=== PATIENT | female | born 1955 | race Caucasian/White ===

== ENCOUNTER 2019-12-29 06:23 | Day surgery (SDC) | payer MEDICARE, BC ==
[2019-12-29] MEDS ORDERED: HYDROmorphone INJ1* 1 MG/ML SYRINGE IV PRN (07:50)
[2019-12-29] MEDS ORDERED: Naloxone* 0.4 MG/ML 1 ML VIAL IV PRN (07:50)
[2019-12-29] MEDS ORDERED: Ondansetron INJ* 2 MG/ML VIAL IV PRN (07:50)
[2019-12-29] MEDS ORDERED: Propofol* 10 MG/ML 20 ML BTL ONE (08:55)
[2019-12-29] MEDS ORDERED: Rocuronium* 10 MG/ML VIAL ONE ×2 (08:55→10:13)
[2019-12-29] MEDS ORDERED: Ondansetron INJ* 2 MG/ML VIAL ONE (10:35)
[2019-12-29] MEDS ORDERED: Sugammadex * 200 MG/2 ML VIAL IV PUSH ONE (10:35)
[2019-12-29 12:13] VITALS: BP 156/78
--- NOTE | 2019-12-29 20:32 | PRO ---
CC: Dr. Essie Griffin * DATE OF PROCEDURE: 12/29/19 [facility] PROCEDURE: Colonoscopy with hot snare polypectomy, cold snare polypectomy, jumbo biopsy polypectomy, clip placement x6, tattoo. REFERRING PROVIDER: Dr. Essie Griffin. INDICATION: The patient is seen for significant iron-deficiency anemia of unclear etiology. The patient has seen a small amount of rectal bleeding once. No other GI symptoms. No prior colon cancer screening. The patient's father of some type of cancer, although she is not sure what type. MEDICATIONS: Given by Anesthesia. DESCRIPTION OF PROCEDURE: Full disclosure of risks was reviewed with the patient as detailed on the consent form. The patient was placed in the left lateral decubitus position and monitored with continuous pulse oximetry, capnography, interval blood pressure monitoring, and direct observation. After anorectal examination was performed, the adult colonoscope was inserted into the rectum and slowly advanced forward to the level of the terminal ileum. Complete views of the cecum were obtained including the medial wall between the IC valve and the appendiceal orifice. Quality of the prep was excellent. Photodocumentation of landmarks obtained. Careful inspection was made as the colonoscope was withdrawn. Retroflexed was performed in the rectum. Findings and interventions are described below. FINDINGS: Anorectal exam was notable for small external anal skin tags. Scope was inserted into the rectum and slowly advanced forward. There was some looping of the colonoscope as the scope was advanced into the right colon. Scope was ultimately able to be advanced into the cecum. Once in the cecum, the terminal ileum was intubated x10 cm. Ileal mucosa was normal in appearance. Scope was then withdrawn back into the cecum and then slowly throughout the length of the colon. There was no colitis. No fresh or old blood. No AVMs. In the cecum, there were 2 polyps measuring 3 mm each. These polyps were removed with jumbo biopsy forceps. In the right colon, there was an inverted diverticulum. In the transverse colon, there was a 4 mm sessile polyp removed with cold snare. In the descending colon, there was a very large polyp measuring approximately 2.5 cm. This polyp was located along a fold and encompassed one-third to one-half of the lumen of the colon in this area. This polyp was removed in piecemeal fashion using a combination of hot snare and cold snare. Two clips were used to close the polypectomy site prophylactically. Tattoo ink was injected just distal to the polyp site for localization in the future if needed. At 40 cm, there was a large pedunculated polyp (approximately 2-2.5 cm) on a very long stalk. Two clips were used at the lower portion of the stalk with their ends nearly apposing in order to help prevent bleeding with polypectomy. Medium- sized snare was then used to gather the polyp. The snare was held snugly closed for a minute to strangulate the polyp. Electrosurgery was then used to transect the polyp. There was no bleeding. No residual polyp tissue. Two clips were used to close the top of the stalk at the polypectomy site. Retroflexion in the rectum revealed small internal hemorrhoids. Scope was then withdrawn from the patient. The patient tolerated the procedure well and was recovered in the GI recovery area. IMPRESSION: 1. Complete colonoscopy to terminal ileum. 2. Three small polyps and two large polyps removed as above. 4. I doubt that the polyps contributed to the iron-deficiency anemia as there did not appear to be any erosions or ulcers on the polyp surfaces. 5. Small hemorrhoids and anal skin tags. FOLLOWUP: 1. Await pathology. 2. Tentatively plan to repeat colonoscopy in 3 to 6 months to reassess the large sessile polyp in the descending colon to ensure no residual polyp tissue ( given piecemeal resection). 3. Will plan for a video capsule endoscopy to ensure no small bowel source of anemia. Thank you very much for this referral. [id number]/[facility] #: [id number] JULIANE
--- NOTE | 2020-01-04 04:44 | PRO ---
CC: Dr. Essie Griffin * DATE OF PROCEDURE: 12/29/19 [facility] PROCEDURE: EGD with biopsy. REFERRING PROVIDER: Dr. Essie Griffin. INDICATIONS: Iron deficiency anemia. MEDICATIONS GIVEN: By Anesthesia. DESCRIPTION OF PROCEDURE: Full disclosure of risks was reviewed with the patient as detailed on the consent form. The patient was placed in the left lateral decubitus position and monitored with continuous pulse oximetry, capnography, interval blood pressure monitoring, and direct observation. A bite -block was placed between the patient's teeth. An adult gastroscope was then inserted into the patient's mouth and advanced down the esophagus, into the stomach, and into the distal duodenum. Findings and interventions are described below. FINDINGS: Esophagus was a tubular structure without rings or strictures. The GE junction was irregular with several tongues of salmon-colored mucosa extending 2 to 3 cm proximal to the GE junction. GE junction occurred at 43 cm. Proximal most extent of Z-line was at 40 cm. Biopsies were obtained from the GE junction. Scope was then advanced into the stomach. Stomach was examined in the forward and retroflexed views. There were no ulcers or erosions. There was diffuse gastric erythema. Biopsies were obtained from the antrum and body for histologic evaluation. Biopsies also obtained from the antrum for CLOtest. There were no AVMs seen in the stomach. No fresh or old blood. Scope was then advanced into the duodenum to at least the third portion. In the mid-duodenum, there was a 1.2 to 1.5 cm polypoid lesion. This was biopsied. Scope was able to be advanced deep into the distal duodenum if not proximal jejunum. No AVMs. No erosions or ulcers. Biopsies were obtained for histologic evaluation. Scope was then withdrawn from the patient. The patient tolerated the procedure well and was recovered in the GI recovery area. IMPRESSION: 1. Complete upper endoscopy to distal duodenum. 2. Irregular gastroesophageal junction. 3. Large duodenal polypoid lesion. Appearance concerning for an adenoma. Biopsied. 4. No explanation for iron deficiency anemia seen on this exam. FOLLOWUP: 1. Await pathology. 2. Proceed with colonoscopy as planned. 3. If duodenal lesion is confirmed to be an adenoma, then I would likely refer her to [place] or [place] for resection. Thank you very much for this referral. [id number]/[facility] #: [id number] [facility]
== END 2019-12-29 12:39 | disposition home or self-care (01) ==
LOC: OR 06:23
PROVIDERS: ATTEND Internal Medicine Gastroenterology
DX: D50.9 Iron deficiency anemia, unspecified (principal); K62.5 Hemorrhage of anus and rectum; C18.6 Malignant neoplasm of descending colon; D12.0 Benign neoplasm of cecum; D12.4 Benign neoplasm of descending colon; D12.3 Benign neoplasm of transverse colon; K29.50 Unspecified chronic gastritis without bleeding; G47.33 Obstructive sleep apnea (adult) (pediatric); I10 Essential (primary) hypertension; I34.8 Other nonrheumatic mitral valve disorders; Z95.0 Presence of cardiac pacemaker
CPT/HCPCS: 87077; 88305; 88341; 88342; J2405; J2704

== ENCOUNTER 2020-10-08 14:27 | Inpatient (IN) ==
[2020-10-08 16:56] LABS: ABS Lymphocytes 0.4 10^3/ul (1.0-4.8); ABS Neutrophils 2.9 10^3/ul (1.5-7.7); Eosinophil % 0.5 %; Hematocrit 12 % (35-47); Hemoglobin 4.1 g/dL (12.0-16.0); Lymphocyte % 12.3 %; Mean Corpuscular HGB Conc 34 g/dL (31-36); Mean Corpuscular Hemoglobin 29 pg (27-31); Mean Corpuscular Volume 84 fL (80-97); Mean Platelet Volume 8.2 fL (7.4-10.4); Platelet Count 159 10^3/uL (150-450); Red Blood Count 1.43 10^6 /uL (3.70-4.87); Red Cell Distribution Width 23 % (10-15); White Blood Count 3.4 10^3/uL (3.5-10.8)
[2020-10-08 17:03] LABS: Albumin 3.1 g/dL (3.2-5.2); Albumin/Globulin Ratio 1.4 (1-3); BUN/Creatinine Ratio 11.6 (8-20); C Reactive Protein 5.86 mg/L (<8.01); EGFR African American 38.2 (>60); EGFR Non-African American 31.5 (>60); Globulin 2.2 g/dL (2-4); Magnesium 1.7 mg/dL (1.9-2.7); Potassium 3.6 mmol/L (3.5-5.0); Total Bilirubin 0.4 mg/dL (0.2-1.0); Total Protein 5.3 g/dL (6.4-8.9)
[2020-10-08] MEDS ORDERED: Albuterol HFA INHALER 8 gm MDI INH PRN (17:55)
[2020-10-08] MEDS ORDERED: Magnesium Sulfate 2 gm BAG 2 GM/50 ML BAG IVPB ONE (18:01)
[2020-10-08] MEDS ORDERED: Iodixanol (CONTRAST) 320 MG/ML 100 ML SDV IV ONE (18:56)
[2020-10-08] MEDS: Ondansetron 4 mg VIAL 2 MG/ML 2 ml VIAL IV PRN (22:02)
[2020-10-09] MEDS: NS 0.9% 1000 ml BAG 1,000 ML IV SCH ×2 (01:28→16:21)
[2020-10-09 06:11] LABS: ABS Lymphocytes 0.6 10^3/ul (1.0-4.8); ABS Neutrophils 1.3 10^3/ul (1.5-7.7); Eosinophil % 1.3 %; Hematocrit 15 % (35-47); Hemoglobin 4.9 g/dL (12.0-16.0); Lymphocyte % 28.5 %; Mean Corpuscular HGB Conc 33 g/dL (31-36); Mean Corpuscular Hemoglobin 28 pg (27-31); Mean Corpuscular Volume 84 fL (80-97); Mean Platelet Volume 8.7 fL (7.4-10.4); Platelet Count 109 10^3/uL (150-450); Red Blood Count 1.77 10^6 /uL (3.70-4.87); Red Cell Distribution Width 19 % (10-15); White Blood Count 1.9 10^3/uL (3.5-10.8)
[2020-10-09 06:18] LABS: BUN/Creatinine Ratio 10.2 (8-20); Calcium 7.6 mg/dL (8.6-10.3); EGFR African American 43.3 (>60); EGFR Non-African American 35.8 (>60); Potassium 3.3 mmol/L (3.5-5.0)
[2020-10-09 07:11] LABS: INR 1.03 (0.82-1.09)
[2020-10-09] MEDS: Iron Sucrose 200 MG in NS 0.9% 100 ml BAG 100 ML IVPB SCH (09:17)
[2020-10-09 17:14] LABS: Hematocrit 20 % (35-47); Hemoglobin 6.6 g/dL (12.0-16.0); Mean Corpuscular HGB Conc 34 g/dL (31-36); Mean Corpuscular Hemoglobin 28 pg (27-31); Mean Corpuscular Volume 84 fL (80-97); Mean Platelet Volume 7.8 fL (7.4-10.4); Platelet Count 95 10^3/uL (150-450); Red Blood Count 2.32 10^6 /uL (3.70-4.87); Red Cell Distribution Width 18 % (10-15); White Blood Count 2.3 10^3/uL (3.5-10.8)
[2020-10-10] MEDS: NS 0.9% 1000 ml BAG 1,000 ML IV SCH ×2 (02:39→15:54)
[2020-10-10 06:17] LABS: ABS Lymphocytes 0.5 10^3/ul (1.0-4.8); ABS Neutrophils 1.2 10^3/ul (1.5-7.7); Hematocrit 18 % (35-47); Lymphocyte % 29.5 %; Mean Corpuscular HGB Conc 34 g/dL (31-36); Mean Corpuscular Hemoglobin 29 pg (27-31); Mean Corpuscular Volume 84 fL (80-97); Mean Platelet Volume 8.2 fL (7.4-10.4); Platelet Count 78 10^3/uL (150-450); Red Blood Count 2.08 10^6 /uL (3.70-4.87); Red Cell Distribution Width 18 % (10-15); White Blood Count 1.8 10^3/uL (3.5-10.8)
[2020-10-10 06:28] LABS: Albumin 2.9 g/dL (3.2-5.2); Albumin/Globulin Ratio 1.5 (1-3); Calcium 7.9 mg/dL (8.6-10.3); EGFR African American 61.8 (>60); EGFR Non-African American 51.1 (>60); Magnesium 1.9 mg/dL (1.9-2.7); Potassium 3.8 mmol/L (3.5-5.0); Total Bilirubin 0.8 mg/dL (0.2-1.0); Total Protein 4.9 g/dL (6.4-8.9)
[2020-10-10] MEDS: Iron Sucrose 200 MG in NS 0.9% 100 ml BAG 100 ML IVPB SCH (08:33)
[2020-10-10] MEDS: Ondansetron 4 mg VIAL 2 MG/ML 2 ml VIAL IV PRN (10:04)
[2020-10-10 12:57] LABS: ABS Lymphocytes 0.5 10^3/ul (1.0-4.8); ABS Neutrophils 1.2 10^3/ul (1.5-7.7); Hematocrit 20 % (35-47); Hemoglobin 6.8 g/dL (12.0-16.0); Lymphocyte % 29.5 %; Mean Corpuscular HGB Conc 34 g/dL (31-36); Mean Corpuscular Hemoglobin 28 pg (27-31); Mean Corpuscular Volume 84 fL (80-97); Mean Platelet Volume 8.1 fL (7.4-10.4); Nucleated Red Blood Cells % 0.1; Platelet Count 76 10^3/uL (150-450); Red Blood Count 2.43 10^6 /uL (3.70-4.87); Red Cell Distribution Width 17 % (10-15); White Blood Count 1.8 10^3/uL (3.5-10.8)
[2020-10-10 20:43] LABS: ABS Lymphocytes 0.5 10^3/ul (1.0-4.8); ABS Monocytes 0.1 10^3/ul (0-0.8); Eosinophil % 1.3 %; Hematocrit 22 % (35-47); Hemoglobin 7.3 g/dL (12.0-16.0); Lymphocyte % 32.1 %; Mean Corpuscular HGB Conc 34 g/dL (31-36); Mean Corpuscular Hemoglobin 29 pg (27-31); Mean Corpuscular Volume 86 fL (80-97); Mean Platelet Volume 8.5 fL (7.4-10.4); Nucleated Red Blood Cells % 0.1; Platelet Count 71 10^3/uL (150-450); Red Blood Count 2.53 10^6 /uL (3.70-4.87); Red Cell Distribution Width 17 % (10-15); White Blood Count 1.6 10^3/uL (3.5-10.8)
[2020-10-11] MEDS: NS 0.9% 1000 ml BAG 1,000 ML IV SCH (02:03)
[2020-10-11] MEDS: Ondansetron 4 mg VIAL 2 MG/ML 2 ml VIAL IV PRN (07:37)
[2020-10-11 09:08] LABS: ABS Lymphocytes 0.4 10^3/ul (1.0-4.8); ABS Monocytes 0.1 10^3/ul (0-0.8); ABS Neutrophils 0.8 10^3/ul (1.5-7.7); Hematocrit 24 % (35-47); Hemoglobin 7.9 g/dL (12.0-16.0); Lymphocyte % 31.6 %; Mean Corpuscular HGB Conc 33 g/dL (31-36); Mean Corpuscular Hemoglobin 29 pg (27-31); Mean Corpuscular Volume 86 fL (80-97); Mean Platelet Volume 8.9 fL (7.4-10.4); Nucleated Red Blood Cells % 0.2; Platelet Count 72 10^3/uL (150-450); Red Blood Count 2.76 10^6 /uL (3.70-4.87); Red Cell Distribution Width 18 % (10-15); White Blood Count 1.4 10^3/uL (3.5-10.8)
[2020-10-11] MEDS: Iron Sucrose 200 MG in NS 0.9% 100 ml BAG 100 ML IVPB SCH (09:41)
[2020-10-11 11:01] VITALS: BP 99/47
== END 2020-10-11 13:30 | disposition home or self-care (01) | DRG 755 ==
LOC: ED 14:27 → MEDTELE 19:08
PROVIDERS: ADMIT Internal Medicine; ATTEND Internal Medicine Hematology & Oncology

== ENCOUNTER 2020-10-11 15:37 | Inpatient (IN) ==
[2020-10-11 18:18] LABS: Hematocrit 22 % (35-47); Hemoglobin 7.4 g/dL (12.0-16.0); Mean Corpuscular HGB Conc 34 g/dL (31-36); Mean Corpuscular Hemoglobin 29 pg (27-31); Mean Corpuscular Volume 85 fL (80-97); Mean Platelet Volume 8.9 fL (7.4-10.4); Platelet Count 67 10^3/uL (150-450); Red Blood Count 2.54 10^6 /uL (3.70-4.87); Red Cell Distribution Width 17 % (10-15); White Blood Count 1.4 10^3/uL (3.5-10.8)
[2020-10-11 18:20] LABS: ABS Neutrophils 0.7 10^3/ul (1.5-7.7)
[2020-10-11 18:21] LABS: Albumin 2.9 g/dL (3.2-5.2); Albumin/Globulin Ratio 1.4 (1-3); Calcium 7.9 mg/dL (8.6-10.3); EGFR African American 67.5 (>60); EGFR Non-African American 55.8 (>60); Globulin 2.1 g/dL (2-4); INR 1.01 (0.82-1.09); Potassium 3.5 mmol/L (3.5-5.0); Total Bilirubin 0.6 mg/dL (0.2-1.0)
[2020-10-11 19:23] LABS: ABS Lymphocytes 0.6 10^3/ul (1.0-4.8); ABS Monocytes 0.1 10^3/ul (0-0.8); Eosinophil % 1.3 %; Lymphocyte % 39.8 %; Nucleated Red Blood Cells % 0.2
[2020-10-12] MEDS ORDERED: Albuterol HFA INHALER 8 gm MDI INH PRN (00:36)
[2020-10-12] MEDS: Ondansetron 4 mg VIAL 2 MG/ML 2 ml VIAL IV PRN ×2 (02:07→17:04)
[2020-10-12 07:56] LABS: ABS Lymphocytes 0.4 10^3/ul (1.0-4.8); ABS Monocytes 0.1 10^3/ul (0-0.8); ABS Neutrophils 0.3 10^3/ul (1.5-7.7); Eosinophil % 2.6 %; Hematocrit 25 % (35-47); Hemoglobin 8.2 g/dL (12.0-16.0); Mean Corpuscular HGB Conc 33 g/dL (31-36); Mean Corpuscular Hemoglobin 29 pg (27-31); Mean Corpuscular Volume 87 fL (80-97); Mean Platelet Volume 7.9 fL (7.4-10.4); Platelet Count 58 10^3/uL (150-450); Red Blood Count 2.82 10^6 /uL (3.70-4.87); Red Cell Distribution Width 16 % (10-15); White Blood Count 0.9 10^3/uL (3.5-10.8)
[2020-10-12 07:59] LABS: INR 1.03 (0.82-1.09)
[2020-10-12 08:08] LABS: BUN/Creatinine Ratio 6.7 (8-20); Calcium 7.8 mg/dL (8.6-10.3); EGFR African American 76.3 (>60); Potassium 3.7 mmol/L (3.5-5.0)
[2020-10-12] MEDS: Potassium Chlor 10 meq TAB PO SCH (09:20)
[2020-10-13] MEDS ORDERED: Ondansetron 4 mg VIAL 2 MG/ML 2 ml VIAL IV PRN (07:47)
[2020-10-13] MEDS: Potassium Chlor 10 meq TAB PO SCH (07:49)
[2020-10-13] MEDS ORDERED: NS 0.9% 250 ml 250 ML IV ONE (07:50)
[2020-10-13] MEDS ORDERED: Iohexol 350 (CONTRAST) 200 ML MDV IV ONE ×2 (08:20→09:47)
[2020-10-13] MEDS ORDERED: Lidocaine 1% VIAL 10 MG/ML VIAL ONE (08:20)
[2020-10-13] MEDS ORDERED: Heparin 2 UNITS/ML 1000 mls 2,000 ML IV ONE (08:20)
[2020-10-13] MEDS ORDERED: Naloxone 0.4 mg VIAL 0.4 mg/ml 1 ml VIAL ONE (08:47)
[2020-10-13] MEDS ORDERED: Ondansetron 4 mg VIAL 2 MG/ML 2 ml VIAL ONE (08:47)
[2020-10-13] MEDS ORDERED: Flumazenil 0.5 mg/5 ml 0.1 MG/ML 5 ml VIAL ONE (08:47)
[2020-10-13] MEDS ORDERED: Midazolam 5 mg/5 ml VIAL 1 mg/ml 5 ml VIAL (5 mg) ONE (08:47)
[2020-10-13] MEDS ORDERED: fentaNYL 100 mcg/2 ml 50 MCG/ML VIAL ONE (08:47)
[2020-10-13] MEDS ORDERED: nitroGLYCERIN DRIP 25,000 MCG/250 ML BTL ONE (08:47)
[2020-10-13] MEDS ORDERED: Heparin 1,000 UNIT/ML 10 ml (10,000 UNITS) CATHLAB/DIALYSIS ONE (08:50)
[2020-10-13] MEDS ORDERED: VERAPAMIL 2.5 MG/ML 2 ML VIAL ** 5 mg/2 ml ONE ×2 (08:50→12:12)
[2020-10-13] MEDS ORDERED: Clindamycin 900 MG/D5W BAG IVPB ONE (09:00)
[2020-10-13] MEDS ORDERED: Heparin 2 UNITS/ML 1000 mls 1,000 ML IV ONE (10:20)
[2020-10-13] MEDS ORDERED: HYDROmorphone PCA 20 MG/20 ML PCA.SYRING PCA SCH (11:00)
[2020-10-13] MEDS ORDERED: HYDROmorphone 1 MG/1 ML SYRINGE ONE (12:28)
[2020-10-13] MEDS: NS 0.9% 1000 ml BAG 1,000 ML IVPB SCH (12:56)
[2020-10-13] MEDS: Ondansetron 4 mg VIAL 2 MG/ML 2 ml VIAL IV SCH ×2 (13:00→21:43)
[2020-10-13 13:52] LABS: Albumin 2.5 g/dL (3.2-5.2); Albumin/Globulin Ratio 1.4 (1-3); BUN/Creatinine Ratio 6.6 (8-20); Calcium 7.5 mg/dL (8.6-10.3); EGFR African American 75.3 (>60); EGFR Non-African American 62.2 (>60); Globulin 1.8 g/dL (2-4); Potassium 3.7 mmol/L (3.5-5.0); Total Bilirubin 0.5 mg/dL (0.2-1.0); Total Protein 4.3 g/dL (6.4-8.9)
[2020-10-13 14:10] LABS: ABS Lymphocytes 0.4 10^3/ul (1.0-4.8); ABS Monocytes 0.2 10^3/ul (0-0.8); ABS Neutrophils 0.1 10^3/ul (1.5-7.7); Eosinophil % 3.4 %; Hematocrit 21 % (35-47); Hemoglobin 6.8 g/dL (12.0-16.0); Lymphocyte % 55.1 %; Mean Corpuscular HGB Conc 33 g/dL (31-36); Mean Corpuscular Hemoglobin 30 pg (27-31); Mean Corpuscular Volume 89 fL (80-97); Mean Platelet Volume 8.1 fL (7.4-10.4); Platelet Count 42 10^3/uL (150-450); Red Blood Count 2.31 10^6 /uL (3.70-4.87); Red Cell Distribution Width 17 % (10-15); White Blood Count 0.6 10^3/uL (3.5-10.8)
[2020-10-14 00:38] LABS: Hematocrit 26 % (35-47); Hemoglobin 8.5 g/dL (12.0-16.0); Mean Corpuscular HGB Conc 33 g/dL (31-36); Mean Corpuscular Hemoglobin 30 pg (27-31); Mean Corpuscular Volume 90 fL (80-97); Mean Platelet Volume 9.3 fL (7.4-10.4); Platelet Count 39 10^3/uL (150-450); Red Blood Count 2.84 10^6 /uL (3.70-4.87); Red Cell Distribution Width 17 % (10-15); White Blood Count 1.2 10^3/uL (3.5-10.8)
[2020-10-14 00:55] LABS: Polychromasia 2+
[2020-10-14 00:56] LABS: ABS Lymphocytes 0.5 10^3/ul (1.0-4.8); ABS Monocytes 0.6 10^3/ul (0-0.8); ABS Neutrophils 0.1 10^3/ul (1.5-7.7); Eosinophil % 2.9 %; Lymphocyte % 41.5 %; Nucleated Red Blood Cells % 0.5
[2020-10-14] MEDS: Ondansetron 4 mg VIAL 2 MG/ML 2 ml VIAL IV SCH ×4 (02:32→19:07)
[2020-10-14] MEDS: Cefepime 2 GM in Dextrose 2 GM/50 ML BAG IV SCH ×3 (02:37→17:30)
[2020-10-14] MEDS: NS 0.9% 1000 ml BAG 1,000 ML IVPB SCH (06:45)
[2020-10-14] MEDS ORDERED: oxyCODONE/Acetamin 5/325 mg TAB PO PRN (10:15)
[2020-10-14] MEDS: Potassium Chlor 10 meq TAB PO SCH (10:18)
[2020-10-14 15:51] LABS: Hematocrit 28 % (35-47); Hemoglobin 9.3 g/dL (12.0-16.0); Mean Corpuscular HGB Conc 33 g/dL (31-36); Mean Corpuscular Hemoglobin 30 pg (27-31); Mean Corpuscular Volume 91 fL (80-97); Red Blood Count 3.07 10^6 /uL (3.70-4.87); Red Cell Distribution Width 17 % (10-15)
[2020-10-14 16:31] LABS: Polychromasia 2+
[2020-10-14 16:35] LABS: ABS Lymphocytes 0.3 10^3/ul (1.0-4.8); ABS Monocytes 0.5 10^3/ul (0-0.8); ABS Neutrophils 0.2 10^3/ul (1.5-7.7); Eosinophil % 1.1 %; Lymphocyte % 28.1 %; Mean Platelet Volume 9.5 fL (7.4-10.4); Nucleated Red Blood Cells % 0.8; Platelet Count 35 10^3/uL (150-450)
[2020-10-14 19:47] LABS: Urine Appearance Cloudy; Urine Bilirubin Negative (Negative); Urine Blood 3+ (Negative); Urine Color Yellow; Urine Glucose Negative (Negative); Urine Ketones Negative (Negative); Urine Nitrite Negative (Negative); Urine Protein 2+(100 mg/dL) (Negative); Urine Specific Gravity 1.024 (1.010-1.030); Urine Urobilinogen Negative (Negative)
[2020-10-14 19:55] LABS: Urine Bacteria Absent (Absent); Urine Red Blood Cell Absent (Absent); Urine Squamous Epithelial Cell Present (Absent); Urine White Blood Cell Trace(0-5/hpf) (Absent)
[2020-10-15] MEDS: Ondansetron 4 mg VIAL 2 MG/ML 2 ml VIAL IV SCH ×4 (00:22→19:23)
[2020-10-15] MEDS: Cefepime 2 GM in Dextrose 2 GM/50 ML BAG IV SCH ×3 (00:22→16:47)
[2020-10-15] MEDS: Potassium Chlor 10 meq TAB PO SCH (09:05)
[2020-10-15 09:27] LABS: ABS Lymphocytes 0.4 10^3/ul (1.0-4.8); ABS Monocytes 0.6 10^3/ul (0-0.8); ABS Neutrophils 1.9 10^3/ul (1.5-7.7); Eosinophil % 1.2 %; Hematocrit 28 % (35-47); Hemoglobin 9.4 g/dL (12.0-16.0); Lymphocyte % 13.9 %; Mean Corpuscular HGB Conc 33 g/dL (31-36); Mean Corpuscular Hemoglobin 30 pg (27-31); Mean Corpuscular Volume 90 fL (80-97); Mean Platelet Volume 8.8 fL (7.4-10.4); Nucleated Red Blood Cells % 0.1; Platelet Count 34 10^3/uL (150-450); Red Blood Count 3.14 10^6 /uL (3.70-4.87); Red Cell Distribution Width 17 % (10-15); White Blood Count 2.9 10^3/uL (3.5-10.8)
[2020-10-16] MEDS: Cefepime 2 GM in Dextrose 2 GM/50 ML BAG IV SCH ×3 (00:07→16:25)
[2020-10-16] MEDS: Ondansetron 4 mg VIAL 2 MG/ML 2 ml VIAL IV SCH ×4 (00:07→18:57)
[2020-10-16 04:56] LABS: Albumin 2.3 g/dL (3.2-5.2); Albumin/Globulin Ratio 1.2 (1-3); BUN/Creatinine Ratio 11.8 (8-20); Calcium 7.6 mg/dL (8.6-10.3); EGFR African American 81.5 (>60); EGFR Non-African American 67.3 (>60); Potassium 3.4 mmol/L (3.5-5.0); Total Bilirubin 0.5 mg/dL (0.2-1.0); Total Protein 4.3 g/dL (6.4-8.9)
[2020-10-16 05:00] LABS: Hematocrit 24 % (35-47); Hemoglobin 8.2 g/dL (12.0-16.0); Mean Corpuscular HGB Conc 34 g/dL (31-36); Mean Corpuscular Hemoglobin 31 pg (27-31); Mean Corpuscular Volume 90 fL (80-97); Mean Platelet Volume 9.2 fL (7.4-10.4); Platelet Count 21 10^3/uL (150-450); Red Blood Count 2.68 10^6 /uL (3.70-4.87); Red Cell Distribution Width 17 % (10-15); White Blood Count 3.9 10^3/uL (3.5-10.8)
[2020-10-16 06:24] LABS: ABS Eosinophils 0.1 10^3/ul (0-0.6); ABS Lymphocytes 0.4 10^3/ul (1.0-4.8); ABS Monocytes 0.5 10^3/ul (0-0.8); ABS Neutrophils 2.9 10^3/ul (1.5-7.7); Eosinophil % 1.6 %; Lymphocyte % 10.1 %; Nucleated Red Blood Cells % 0.2; Polychromasia 1+
[2020-10-16] MEDS: Potassium Chlor 10 meq TAB PO SCH (08:44)
[2020-10-16] MEDS: Potassium Chlor 20 meq TAB.ER PO SCH (09:15)
[2020-10-17] MEDS: Ondansetron 4 mg VIAL 2 MG/ML 2 ml VIAL IV SCH ×3 (01:34→12:57)
[2020-10-17] MEDS: Potassium Chlor 20 meq TAB.ER PO SCH (08:06)
[2020-10-17 08:14] VITALS: BP 109/51
[2020-10-17 08:38] LABS: Hematocrit 25 % (35-47); Hemoglobin 8.6 g/dL (12.0-16.0); Mean Corpuscular HGB Conc 34 g/dL (31-36); Mean Corpuscular Hemoglobin 31 pg (27-31); Mean Corpuscular Volume 90 fL (80-97); Mean Platelet Volume 9.9 fL (7.4-10.4); Platelet Count 24 10^3/uL (150-450); Red Blood Count 2.82 10^6 /uL (3.70-4.87); Red Cell Distribution Width 17 % (10-15); White Blood Count 5.1 10^3/uL (3.5-10.8)
[2020-10-17 08:39] LABS: BUN/Creatinine Ratio 11.5 (8-20); Calcium 7.6 mg/dL (8.6-10.3); EGFR African American 70.8 (>60); EGFR Non-African American 58.5 (>60); Potassium 3.4 mmol/L (3.5-5.0)
[2020-10-17] MEDS ORDERED: Potassium Chlor 20 meq TAB.ER PO ONE (09:14)
[2020-10-17 10:54] LABS: ABS Lymphocytes 0.4 10^3/ul (1.0-4.8); ABS Monocytes 0.5 10^3/ul (0-0.8); ABS Neutrophils 4.3 10^3/ul (1.5-7.7); Eosinophil % 0.4 %; Lymphocyte % 7.3 %; Microcytosis 1+; Nucleated Red Blood Cells % 0.1; Polychromasia 1+
[2020-10-18] MEDS ORDERED: Potassium Chlor 20 meq TAB.ER PO SCH (09:00)
== END 2020-10-17 15:34 | disposition home or self-care (01) | DRG 749 ==
LOC: ED 15:37 → MEDTELE 23:48
PROVIDERS: ADMIT Internal Medicine; ATTEND Student in an Organized Health Care Education/Training Program
PROC: ANG.UFE (2020-10-13 08:25)

== ENCOUNTER 2020-11-23 00:38 | Inpatient (IN) ==
[2020-11-23] MEDS ORDERED: NS 0.9% 1000 ml BAG 1,000 ML IV ONE ×3 (01:18→05:02)
[2020-11-23] MEDS ORDERED: Metoclopramide 5 MG/ML VIAL (10 mg) IV SLOW PU ONE (01:19)
[2020-11-23 02:16] LABS: Hematocrit 19 % (35-47); Hemoglobin 6.1 g/dL (12.0-16.0); Mean Corpuscular HGB Conc 33 g/dL (31-36); Mean Corpuscular Hemoglobin 31 pg (27-31); Mean Corpuscular Volume 94 fL (80-97); Mean Platelet Volume 8.5 fL (7.4-10.4); Platelet Count 42 10^3/uL (150-450); Red Blood Count 1.98 10^6 /uL (3.70-4.87); Red Cell Distribution Width 21 % (10-15); White Blood Count 0.4 10^3/uL (3.5-10.8)
[2020-11-23 02:23] LABS: ALT 16 U/L (7-52); AST 14 U/L (13-39); Albumin 2.4 g/dL (3.2-5.2); Albumin/Globulin Ratio 0.9 (1-3); Alkaline Phosphatase 63 U/L (34-104); Anion Gap 13 mmol/L (2-11); BUN/Creatinine Ratio 14.3 (8-20); Blood Urea Nitrogen 19 mg/dL (6-24); CO2 Carbon Dioxide 17 mmol/L (22-32); Calcium 7.6 mg/dL (8.6-10.3); Chloride 108 mmol/L (101-111); EGFR African American 48.6 (>60); EGFR Non-African American 40.2 (>60); Globulin 2.7 g/dL (2-4); Glucose 130 mg/dL (70-100); Potassium 2.9 mmol/L (3.5-5.0); Sodium 138 mmol/L (135-145); Total Protein 5.1 g/dL (6.4-8.9)
[2020-11-23] MEDS ORDERED: Magnesium Sulfate 2 gm BAG 2 GM/50 ML BAG IVPB ONE ×2 (02:26→03:46)
[2020-11-23 02:27] LABS: Troponin I 0.04 ng/mL (<0.03)
[2020-11-23] MEDS ORDERED: Potassium Chlor 20 meq TAB.ER PO ONE (02:29)
[2020-11-23] MEDS ORDERED: KCL 20 MEQ/100 ML IVPREMIX 20 MEQ/100 ML BAG IV ONE ×2 (02:34→11:10)
[2020-11-23] MEDS ORDERED: Potassium Chloride LIQUID 20 MEQ/15 ML LIQUID PO ONE (03:31)
[2020-11-23 03:37] LABS: ABS Lymphocytes 0.1 10^3/ul (1.0-4.8); ABS Monocytes 0.1 10^3/ul (0-0.8); ABS Neutrophils 0.1 10^3/ul (1.5-7.7); Eosinophil % 0.5 %; Lymphocyte % 34.2 %; Nucleated Red Blood Cells % 0.2
[2020-11-23] MEDS ORDERED: Ondansetron 4 mg VIAL 2 MG/ML 2 ml VIAL IV PRN (03:43)
[2020-11-23] MEDS ORDERED: Albuterol HFA INHALER 8 gm MDI INH PRN (04:14)
[2020-11-23] MEDS: Cefepime 2 GM in Dextrose 2 GM/50 ML BAG IV SCH ×3 (04:33→20:29)
[2020-11-23 05:23] LABS: Anion Gap 8 mmol/L (2-11); Blood Urea Nitrogen 17 mg/dL (6-24); CO2 Carbon Dioxide 19 mmol/L (22-32); Calcium 7.2 mg/dL (8.6-10.3); Chloride 111 mmol/L (101-111); EGFR African American 58.7 (>60); EGFR Non-African American 48.5 (>60); Glucose 123 mg/dL (70-100); Potassium 3.2 mmol/L (3.5-5.0); Sodium 138 mmol/L (135-145)
[2020-11-23 05:32] LABS: Troponin I 0.04 ng/mL (<0.03)
[2020-11-23 06:21] LABS: Hematocrit 19 % (35-47); Hemoglobin 6.1 g/dL (12.0-16.0); Mean Corpuscular HGB Conc 33 g/dL (31-36); Mean Corpuscular Hemoglobin 31 pg (27-31); Mean Corpuscular Volume 94 fL (80-97); Mean Platelet Volume 9.2 fL (7.4-10.4); Platelet Count 47 10^3/uL (150-450); Red Cell Distribution Width 21 % (10-15); White Blood Count 0.4 10^3/uL (3.5-10.8)
[2020-11-23 06:41] LABS: Troponin I 0.03 ng/mL (<0.03)
[2020-11-23] MEDS: NS 0.9% 1000 ml BAG 1,000 ML IV SCH (07:36)
[2020-11-23 09:39] LABS: ABS Lymphocytes 0.2 10^3/ul (1.0-4.8); ABS Monocytes 0.1 10^3/ul (0-0.8); ABS Neutrophils 0.1 10^3/ul (1.5-7.7); Eosinophil % 0.2 %; Lymphocyte % 44.9 %
[2020-11-23 09:43] LABS: Hematocrit 19 % (35-47); Hemoglobin 6.4 g/dL (12.0-16.0); Mean Corpuscular HGB Conc 33 g/dL (31-36); Mean Corpuscular Hemoglobin 31 pg (27-31); Mean Corpuscular Volume 93 fL (80-97); Mean Platelet Volume 8.5 fL (7.4-10.4); Platelet Count 47 10^3/uL (150-450); Red Blood Count 2.08 10^6 /uL (3.70-4.87); Red Cell Distribution Width 22 % (10-15); White Blood Count 0.4 10^3/uL (3.5-10.8)
[2020-11-23] MEDS ORDERED: Magic MouthWash2-BEN/MAAL/LIDO/NYST 240 ML BTL (alt formulation) SWISH SWAL SCH (13:00)
[2020-11-23] MEDS ORDERED: Lorazepam PYXIS KEY PRN (13:45)
[2020-11-23] MEDS ORDERED: LORazepam 2 mg VIAL 1 ml IV PUSH ONE (13:45)
[2020-11-23] MEDS ORDERED: LORazepam 2 mg VIAL 1 ml IV PUSH PRN (13:45)
[2020-11-23] MEDS: Magic MouthWash1-BEN/MAAL/LIDO 180 ML BTL SWISH SWAL SCH ×3 (14:42→20:28)
[2020-11-23 17:15] LABS: Hematocrit 22 % (35-47); Hemoglobin 7.3 g/dL (12.0-16.0)
[2020-11-23 17:55] LABS: % Iron Saturation 44 % (15-55); Iron 52 ug/dL (50-212); Total Iron Binding Capacity 118 mcg/dL (250-450); Transferrin 84 mg/dL (203-362); Unsaturated Iron Binding < 103 ug/dL
[2020-11-23 18:21] LABS: Vitamin B12 > 1450 pg/mL (180-914)
[2020-11-23 22:16] LABS: Hematocrit 23 % (35-47); Hemoglobin 7.5 g/dL (12.0-16.0)
[2020-11-24] MEDS: NS 0.9% 1000 ml BAG 1,000 ML IV SCH ×2 (05:06→19:24)
[2020-11-24] MEDS: Cefepime 2 GM in Dextrose 2 GM/50 ML BAG IV SCH ×3 (05:06→21:09)
[2020-11-24 05:50] LABS: Hematocrit 20 % (35-47); Hemoglobin 6.7 g/dL (12.0-16.0); Mean Corpuscular HGB Conc 33 g/dL (31-36); Mean Corpuscular Hemoglobin 31 pg (27-31); Mean Corpuscular Volume 93 fL (80-97); Mean Platelet Volume 8.8 fL (7.4-10.4); Platelet Count 30 10^3/uL (150-450); Red Blood Count 2.17 10^6 /uL (3.70-4.87); Red Cell Distribution Width 20 % (10-15); White Blood Count 0.5 10^3/uL (3.5-10.8)
[2020-11-24 05:57] LABS: BUN/Creatinine Ratio 20.8 (8-20); Calcium 7.7 mg/dL (8.6-10.3); EGFR African American 63.1 (>60); EGFR Non-African American 52.2 (>60); Potassium 3.4 mmol/L (3.5-5.0)
[2020-11-24 07:35] LABS: ABS Lymphocytes 0.2 10^3/ul (1.0-4.8); ABS Monocytes 0.1 10^3/ul (0-0.8); Lymphocyte % 46.1 %; Nucleated Red Blood Cells % 0.1
[2020-11-24 08:22] LABS: ABS Neutrophils 0.2 10^3/ul (1.5-7.7)
[2020-11-24] MEDS: Magic MouthWash1-BEN/MAAL/LIDO 180 ML BTL SWISH SWAL SCH ×4 (09:03→21:11)
[2020-11-24 10:30] LABS: Hematocrit 22 % (35-47); Hemoglobin 7.3 g/dL (12.0-16.0)
[2020-11-24 18:46] LABS: Hematocrit 22 % (35-47); Hemoglobin 7.4 g/dL (12.0-16.0)
[2020-11-25] MEDS: Vancomycin SOL ORALSYR 50 MG/ML ML PO SCH ×5 (00:15→21:56)
[2020-11-25 00:31] LABS: Hematocrit 21 % (35-47); Hemoglobin 6.9 g/dL (12.0-16.0)
[2020-11-25] MEDS: Cefepime 2 GM in Dextrose 2 GM/50 ML BAG IV SCH ×2 (05:07→14:27)
[2020-11-25] MEDS: Ondansetron 4 mg VIAL 2 MG/ML 2 ml VIAL IV PRN ×2 (06:26→21:02)
[2020-11-25 06:44] LABS: Hematocrit 26 % (35-47); Hemoglobin 8.7 g/dL (12.0-16.0); Mean Corpuscular HGB Conc 33 g/dL (31-36); Mean Corpuscular Hemoglobin 31 pg (27-31); Mean Corpuscular Volume 93 fL (80-97); Mean Platelet Volume 9.7 fL (7.4-10.4); Platelet Count 21 10^3/uL (150-450); Red Blood Count 2.81 10^6 /uL (3.70-4.87); Red Cell Distribution Width 19 % (10-15); White Blood Count 1.4 10^3/uL (3.5-10.8)
[2020-11-25 06:47] LABS: Hematocrit 26 % (35-47); Hemoglobin 8.9 g/dL (12.0-16.0)
[2020-11-25 06:57] LABS: BUN/Creatinine Ratio 21.2 (8-20); EGFR African American 68.3 (>60); EGFR Non-African American 56.5 (>60); Potassium 3.4 mmol/L (3.5-5.0)
[2020-11-25 08:05] LABS: Nucleated Red Blood Cells % 0.3
[2020-11-25] MEDS ORDERED: Potassium Chlor 20 meq TAB.ER PO ONE (08:09)
[2020-11-25] MEDS ORDERED: Lactated Ringers 1000 ml BAG 1,000 ML IV SCH (09:00)
[2020-11-25] MEDS: Magic MouthWash1-BEN/MAAL/LIDO 180 ML BTL SWISH SWAL SCH ×4 (09:32→21:56)
[2020-11-25 12:59] LABS: Hematocrit 24 % (35-47)
[2020-11-26 04:28] LABS: ABS Lymphocytes 0.3 10^3/ul (1.0-4.8); ABS Monocytes 0.1 10^3/ul (0-0.8); ABS Neutrophils 1.6 10^3/ul (1.5-7.7); Eosinophil % 0.1 %; Hematocrit 29 % (35-47); Hemoglobin 9.5 g/dL (12.0-16.0); Lymphocyte % 13.7 %; Mean Corpuscular HGB Conc 33 g/dL (31-36); Mean Corpuscular Hemoglobin 31 pg (27-31); Mean Corpuscular Volume 93 fL (80-97); Mean Platelet Volume 9.4 fL (7.4-10.4); Nucleated Red Blood Cells % 0.3; Platelet Count 14 10^3/uL (150-450); Red Blood Count 3.06 10^6 /uL (3.70-4.87); Red Cell Distribution Width 19 % (10-15)
[2020-11-26 04:31] LABS: BUN/Creatinine Ratio 21.6 (8-20); Calcium 8.1 mg/dL (8.6-10.3); EGFR African American 59.9 (>60); EGFR Non-African American 49.5 (>60); Potassium 3.6 mmol/L (3.5-5.0)
[2020-11-26] MEDS: Magic MouthWash1-BEN/MAAL/LIDO 180 ML BTL SWISH SWAL SCH ×4 (09:19→20:34)
[2020-11-26] MEDS: Vancomycin SOL ORALSYR 50 MG/ML ML PO SCH ×4 (09:20→22:43)
[2020-11-26 10:26] LABS: Mean Platelet Volume 10.3 fL (7.4-10.4); Platelet Count 10 10^3/uL (150-450)
[2020-11-26] MEDS ORDERED: Lactated Ringers 1000 ml BAG 1,000 ML IV SCH (14:00)
[2020-11-26 16:00] LABS: Magnesium 1.7 mg/dL (1.9-2.7)
[2020-11-26] MEDS: Ondansetron 4 mg VIAL 2 MG/ML 2 ml VIAL IV PRN ×2 (17:56→22:43)
[2020-11-26] MEDS ORDERED: Metoclopramide 5 MG/ML VIAL (10 mg) IV SLOW PU ONE (20:59)
[2020-11-27] MEDS ORDERED: Metoprolol Tartrate 5 mg VIAL 5 ml VIAL (1 mg/ml) ONE (01:17)
[2020-11-27] MEDS ORDERED: Dextrose 50% Syringe 50 ml 25 GM/50 ML SYRINGE ONE (01:17)
[2020-11-27 01:49] LABS: Hematocrit 29 % (35-47); Hemoglobin 8.4 g/dL (12.0-16.0); Mean Corpuscular HGB Conc 29 g/dL (31-36); Mean Corpuscular Hemoglobin 31 pg (27-31); Mean Corpuscular Volume 106 fL (80-97); Mean Platelet Volume 11.7 fL (7.4-10.4); Platelet Count 7 10^3/uL (150-450); Red Cell Distribution Width 21 % (10-15); White Blood Count 3.5 10^3/uL (3.5-10.8)
[2020-11-27 01:59] LABS: Activated Partial Thrombo Time 33.6 seconds (26.0-38.0); INR 1.99 (0.82-1.09)
[2020-11-27 02:00] LABS: BUN/Creatinine Ratio 19.3 (8-20); Blood Urea Nitrogen 35 mg/dL (6-24); Calcium 8.7 mg/dL (8.6-10.3); EGFR African American 34.1 (>60); EGFR Non-African American 28.1 (>60); Glucose 461 mg/dL (70-100); Magnesium 2.1 mg/dL (1.9-2.7); Potassium 4.9 mmol/L (3.5-5.0); Sodium 139 mmol/L (135-145)
[2020-11-27 02:04] LABS: Chloride 114 mmol/L (101-111)
[2020-11-27 02:07] LABS: CO2 Carbon Dioxide < 7 mmol/L (22-32)
[2020-11-27 02:08] LABS: Troponin I 0.04 ng/mL (<0.03)
[2020-11-27] MEDS ORDERED: Succinylcholine 200 mg VIAL 20 mg/ml 10 ml VIAL (200 mg) ONE (02:11)
[2020-11-27] MEDS ORDERED: Norepinephrine 16MCG/ML IVPRE 4,000 MCG/250 ML BAG IV ONE (02:13)
[2020-11-27] MEDS ORDERED: Propofol 10 mg/ml 100 ML BTL 100 ML ONE (02:19)
[2020-11-27] MEDS ORDERED: Etomidate 40 mg/20 ml (2 MG/ML) 20 ml VIAL (40 mg) ONE (02:20)
[2020-11-27] MEDS ORDERED: NS 0.9% 1000 ml BAG 1,000 ML IV ONE ×2 (02:40→07:00)
[2020-11-27] MEDS ORDERED: metroNIDAZOLE IV 250 MG/50ML 50 ML IVPB SCH (03:00)
[2020-11-27] MEDS: metroNIDAZOLE IV 500 MG/100ML 100 ML IVPB SCH ×3 (03:42→22:58)
[2020-11-27] MEDS: Sodium Bicarb 8.4% Vial 50 ML 150 MEQ in D5W 1000 ml BAG 850 ML IV SCH ×2 (03:55→13:48)
[2020-11-27] MEDS ORDERED: metroNIDAZOLE IV 500 MG/100ML 100 ML IVPB SCH ×2 (04:00)
[2020-11-27] MEDS ORDERED: VANCOMYCIN IVPB ONE (04:30)
[2020-11-27] MEDS ORDERED: NS 0.9% IVPB ONE (04:30)
[2020-11-27] MEDS: Norepinephrine 16MCG/ML IVPRE 4,000 MCG/250 ML BAG IV SCH ×2 (04:45→08:35)
[2020-11-27] MEDS ORDERED: Vancomycin per Pharmacy 1 EA NOTE FOLLOW UP SCH (05:00)
[2020-11-27] MEDS: Meropenem 2 GM in NS 0.9% 100 ml BAG 100 ML IVPB SCH ×2 (05:51→16:45)
[2020-11-27 05:53] LABS: ABS Monocytes 0.1 10^3/ul (0-0.8); ABS Neutrophils 2.7 10^3/ul (1.5-7.7); ABS Nucleated RBC 0.2 10^3/ul; Eosinophil % 0.1 %; Hematocrit 28 % (35-47); Lymphocyte % 26.9 %; Mean Corpuscular HGB Conc 32 g/dL (31-36); Mean Corpuscular Hemoglobin 31 pg (27-31); Mean Corpuscular Volume 97 fL (80-97); Mean Platelet Volume 7.5 fL (7.4-10.4); Nucleated Red Blood Cells % 4.3; Platelet Count 15 10^3/uL (150-450); Red Blood Count 2.92 10^6 /uL (3.70-4.87); Red Cell Distribution Width 20 % (10-15); White Blood Count 3.8 10^3/uL (3.5-10.8)
[2020-11-27 06:07] LABS: ABS Lymphocytes 1.1 10^3/ul (1.0-4.8); ABS Monocytes 0.1 10^3/ul (0-0.8); ABS Neutrophils 2.3 10^3/ul (1.5-7.7); ABS Nucleated RBC 0.1 10^3/ul; Eosinophil % 0.3 %; Lymphocyte % 32.2 %; Nucleated Red Blood Cells % 1.6
[2020-11-27 06:08] LABS: BUN/Creatinine Ratio 17.9 (8-20); Calcium 7.5 mg/dL (8.6-10.3); EGFR African American 33.4 (>60); EGFR Non-African American 27.6 (>60); Magnesium 1.8 mg/dL (1.9-2.7); Potassium 3.7 mmol/L (3.5-5.0)
[2020-11-27] MEDS ORDERED: Magnesium Sulfate 2 gm BAG 2 GM/50 ML BAG IVPB ONE (06:10)
[2020-11-27] MEDS ORDERED: Magnesium Sulfate 2 gm BAG 2 GM/50 ML BAG ONE (06:13)
[2020-11-27 06:37] LABS: ABS Lymphocytes 1.1 10^3/ul (1.0-4.8); ABS Monocytes 0.1 10^3/ul (0-0.8); ABS Neutrophils 2.8 10^3/ul (1.5-7.7); ABS Nucleated RBC 0.2 10^3/ul; Hematocrit 31 % (35-47); Hemoglobin 9.7 g/dL (12.0-16.0); Lymphocyte % 26.9 %; Mean Corpuscular HGB Conc 31 g/dL (31-36); Mean Corpuscular Hemoglobin 31 pg (27-31); Mean Corpuscular Volume 98 fL (80-97); Mean Platelet Volume 7.5 fL (7.4-10.4); Nucleated Red Blood Cells % 4.7; Platelet Count 13 10^3/uL (150-450); Red Blood Count 3.17 10^6 /uL (3.70-4.87); Red Cell Distribution Width 19 % (10-15)
[2020-11-27 06:47] LABS: BUN/Creatinine Ratio 18.2 (8-20); Calcium 7.4 mg/dL (8.6-10.3); EGFR African American 34.1 (>60); EGFR Non-African American 28.1 (>60); Potassium 3.5 mmol/L (3.5-5.0)
[2020-11-27] MEDS: Magic MouthWash1-BEN/MAAL/LIDO 180 ML BTL SWISH SWAL SCH ×4 (07:18→21:05)
[2020-11-27] MEDS: Vancomycin SOL ORALSYR 50 MG/ML ML PO SCH ×5 (08:10→21:48)
[2020-11-27] MEDS: Propofol 10 mg/ml 100 ML BTL 100 ML IV SCH ×2 (08:30→21:42)
[2020-11-27] MEDS: Norepinephrine 8 mg in 500 mL NS (Pharmacy Admixed Drip) IV SCH ×4 (10:06→20:48)
[2020-11-27] MEDS: Vasopressin 100 UNITS in D5W 250 ML BAG IV SCH (11:07)
[2020-11-27] MEDS: Hydrocortisone INJ 100 MG/2ML 2 ML VIAL IV SCH ×2 (11:14→16:57)
[2020-11-27] MEDS: Chlorhexidine MOUTHWASH 0.12% 15 ML UDC TOPICAL SCH ×4 (11:17→21:48)
[2020-11-27] MEDS ORDERED: Lactated Ringers 1000 ml BAG 1,000 ML IV ONE (11:43)
[2020-11-27] MEDS ORDERED: Albumin Human 25% 12.5 GM/50 ML BTL IV ONE (11:55)
[2020-11-27] MEDS: Phenylephrine IV 50 MG in NS 0.9% 250 ml 245 ML IV SCH ×3 (12:00→20:08)
[2020-11-27] MEDS ORDERED: Perflutren Lipid Microsphere 3 ML VIAL ONE (12:24)
[2020-11-27] MEDS ORDERED: Albumin Human 25% 25 GM/100 ML BTL IV ONE (12:30)
[2020-11-27 12:50] LABS: ABS Monocytes 0.1 10^3/ul (0-0.8); ABS Neutrophils 2.6 10^3/ul (1.5-7.7); Eosinophil % 0.1 %; Hematocrit 32 % (35-47); Hemoglobin 10.2 g/dL (12.0-16.0); Lymphocyte % 28.5 %; Mean Corpuscular HGB Conc 32 g/dL (31-36); Mean Corpuscular Hemoglobin 30 pg (27-31); Mean Corpuscular Volume 95 fL (80-97); Mean Platelet Volume 12.6 fL (7.4-10.4); Nucleated Red Blood Cells % 0.9; Platelet Count 4 10^3/uL (150-450); Red Blood Count 3.36 10^6 /uL (3.70-4.87); Red Cell Distribution Width 19 % (10-15); White Blood Count 3.7 10^3/uL (3.5-10.8)
[2020-11-27 13:27] LABS: Albumin 1.9 g/dL (3.2-5.2); BUN/Creatinine Ratio 20.2 (8-20); Calcium 7.6 mg/dL (8.6-10.3); EGFR African American 37.1 (>60); EGFR Non-African American 30.7 (>60); Potassium 3.6 mmol/L (3.5-5.0); Total Bilirubin 0.8 mg/dL (0.2-1.0); Total Protein 3.9 g/dL (6.4-8.9)
[2020-11-27 18:26] LABS: Mean Platelet Volume 8.2 fL (7.4-10.4); Platelet Count 17 10^3/uL (150-450)
[2020-11-27] MEDS ORDERED: EPINEPHRINE 1 MG/ML 1 MG in D5W 250 ML BAG 249 ML IV SCH (23:00)
[2020-11-27] MEDS ORDERED: Pantoprazole VIAL 40 MG VIAL IV SCH (23:00)
[2020-11-27 23:24] LABS: BUN/Creatinine Ratio 19.8 (8-20); C Reactive Protein 314.46 mg/L (<8.01); Calcium 7.3 mg/dL (8.6-10.3); EGFR African American 34.9 (>60); EGFR Non-African American 28.9 (>60)
[2020-11-27 23:27] LABS: INR 1.73 (0.82-1.09)
[2020-11-27 23:38] LABS: Hematocrit 27 % (35-47); Hemoglobin 8.8 g/dL (12.0-16.0); Mean Corpuscular HGB Conc 33 g/dL (31-36); Mean Corpuscular Hemoglobin 30 pg (27-31); Mean Corpuscular Volume 93 fL (80-97); Mean Platelet Volume 9.8 fL (7.4-10.4); Platelet Count 6 10^3/uL (150-450); Red Cell Distribution Width 20 % (10-15); White Blood Count 3.9 10^3/uL (3.5-10.8)
[2020-11-28] MEDS: Norepinephrine IV 16 MG in NS 0.9% 250 ml 234 ML IV SCH ×4 (00:24→12:58)
[2020-11-28] MEDS: Phenylephrine IV 50 MG in NS 0.9% 250 ml 245 ML IV SCH ×3 (00:30→13:40)
[2020-11-28 00:42] LABS: ABS Lymphocytes 0.4 10^3/ul (1.0-4.8); ABS Monocytes 0.1 10^3/ul (0-0.8); ABS Neutrophils 3.4 10^3/ul (1.5-7.7); Eosinophil % 0.2 %; Lymphocyte % 10.1 %; Nucleated Red Blood Cells % 0.3
[2020-11-28] MEDS: Sodium Bicarb 8.4% Vial 50 ML 150 MEQ in D5W 1000 ml BAG 850 ML IV SCH ×2 (00:51→11:33)
[2020-11-28] MEDS: Chlorhexidine MOUTHWASH 0.12% 15 ML UDC TOPICAL SCH ×4 (01:34→14:31)
[2020-11-28] MEDS: Hydrocortisone INJ 100 MG/2ML 2 ML VIAL IV SCH ×2 (01:34→07:51)
[2020-11-28] MEDS ORDERED: Lactated Ringers 1000 ml BAG 1,000 ML IV ONE (02:00)
[2020-11-28] MEDS: Propofol 10 mg/ml 100 ML BTL 100 ML IV SCH ×2 (02:10→07:14)
[2020-11-28] MEDS ORDERED: Vancomycin Random Level NOTE FOLLOW UP ONE (06:00)
[2020-11-28 06:12] VITALS: BP 83/37
[2020-11-28] MEDS: Meropenem 2 GM in NS 0.9% 100 ml BAG 100 ML IVPB SCH (06:42)
[2020-11-28] MEDS: metroNIDAZOLE IV 500 MG/100ML 100 ML IVPB SCH ×2 (06:42→14:32)
[2020-11-28 07:44] LABS: ABS Lymphocytes 0.7 10^3/ul (1.0-4.8); Eosinophil % 0.9 %; Hematocrit 18 % (35-47); Hemoglobin 5.3 g/dL (12.0-16.0); Lymphocyte % 24.6 %; Mean Corpuscular HGB Conc 29 g/dL (31-36); Mean Corpuscular Hemoglobin 31 pg (27-31); Mean Corpuscular Volume 106 fL (80-97); Mean Platelet Volume 7.3 fL (7.4-10.4); Nucleated Red Blood Cells % 0.4; Platelet Count 9 10^3/uL (150-450); Red Blood Count 1.72 10^6 /uL (3.70-4.87); Red Cell Distribution Width 22 % (10-15); White Blood Count 2.8 10^3/uL (3.5-10.8)
[2020-11-28 07:56] LABS: ALT 77 U/L (7-52); AST 308 U/L (13-39); Alkaline Phosphatase 41 U/L (34-104); BUN/Creatinine Ratio 16.4 (8-20); Blood Urea Nitrogen 33 mg/dL (6-24); Chloride 106 mmol/L (101-111); EGFR African American 30.2 (>60); EGFR Non-African American 24.9 (>60); Glucose 296 mg/dL (70-100); Sodium 133 mmol/L (135-145)
[2020-11-28] MEDS: Magic MouthWash1-BEN/MAAL/LIDO 180 ML BTL SWISH SWAL SCH ×2 (07:57→11:35)
[2020-11-28 08:33] LABS: Acanthocytes 1+
[2020-11-28 09:11] LABS: Albumin 1.3 g/dL (3.2-5.2); Potassium 5.4 mmol/L (3.5-5.0)
[2020-11-28 09:14] LABS: Albumin/Globulin Ratio 0.8 (1-3); Globulin 1.7 g/dL (2-4); Total Protein < 3.0 g/dL (6.4-8.9)
[2020-11-28 09:16] LABS: CO2 Carbon Dioxide < 7 mmol/L (22-32); Calcium 6.2 mg/dL (8.6-10.3)
[2020-11-28] MEDS: Vancomycin SOL ORALSYR 50 MG/ML ML PO SCH ×2 (10:05→14:31)
[2020-11-28] MEDS ORDERED: Vancomycin 1,250 MG IV x ONCE IVPB ONE (13:00)
[2020-11-28] MEDS: Vasopressin 100 UNITS in D5W 250 ML BAG IV SCH (13:41)
[2020-11-29] MEDS ORDERED: Vancomycin Random Level NOTE FOLLOW UP ONE (06:00)
[2020-11-29 16:14] LABS: GPIIb/IIIa (Cell-1) Negative; GPIIb/IIIa (Cell-2) Negative; GPIV Negative; GPIa/IIa (Cell-1) Negative; GPIa/IIa (Cell-2) Negative; GPIb/IX Negative; Platelet Count x 10(9)/L? 10
== END 2020-11-28 14:40 | disposition expired | DRG 871 ==
LOC: ED 00:38 → MEDTELE 03:22 → ICU 11-27 01:39
PROVIDERS: ADMIT Hospitalist; ATTEND Surgery Surgical Critical Care